=== PATIENT | male | born 1940 | race Caucasian/White ===

== ENCOUNTER 2019-04-05 07:48 | Day surgery (SDC) | payer OTHER, MEDICARE ==
[2019-04-04 16:23] VITALS: BMI 25.2
[2019-04-05] MEDS ORDERED: LIDOCAINE HCL 1%, 10 MG/ML (20ML VIAL) ONE (10:20)
[2019-04-05] MEDS ORDERED: HEPARIN NA (PORCINE) 5,000 UNITS/ML 1ML VIAL ONE ×2 (10:20→12:29)
[2019-04-05] MEDS ORDERED: ceFAZolin SODIUM 1 GM VIAL ONE ×2 (10:43→12:06)
[2019-04-05] MEDS ORDERED: SODIUM CHLORIDE 0.9% P/F 10 ML VIAL IJ ONE ×2 (10:43→12:06)
[2019-04-05] MEDS ORDERED: PROPOFOL 20 ML ONE ×2 (10:43→12:38)
[2019-04-05] MEDS ORDERED: MIDAZOLAM HCL 2 MG/2 ML SINGLE DOSE VIAL ONE ×4 (10:43→12:31)
[2019-04-05] MEDS ORDERED: ONDANSETRON 4 MG/2 ML VIAL IVPUSH PRN (11:41)
[2019-04-05] MEDS ORDERED: oxyCODONE HCL 5 MG TABLET PO PRN (11:41)
[2019-04-05] MEDS ORDERED: LACTATED RINGERS SOLUTION 1,000 ML IV SCH (11:45)
--- NOTE | 2019-04-05 11:47 | HP ---
Admitting History and Physical - Admission Chief Complaint: left lower ext claudication less than 2 blocks Limitations to Obtaining History: No Limitations - Smoking History Smoking history: Former smoker Have you smoked in the past 12 months: No Aproximately how many cigarettes per day: 3 If you are a former smoker, when did you quit?: 2012 - Alcohol/Substance Use Hx Alcohol Use: Yes (FEW BEERS A DAY) Home Medications - Allergies Allergies/Adverse Reactions: Allergies Allergy/AdvReac Type Severity Reaction Status Date / Time No Known Allergies Allergy Verified 04/05/19 09:40 - Home Medications Home Medications: Ambulatory Orders Clopidogrel Bisulfate [Plavix -] 75 mg PO DAILY #30 tablet 10/12/17 Beta-Carotene(A) W-C and E/Min [Ocuvite (Nf)] 1 tab PO DAILY 04/04/19 Review of Systems - Review of Systems Constitutional: reports: No Symptoms Eyes: reports: No Symptoms HENT: reports: No Symptoms Neck: reports: No Symptoms Cardiovascular: reports: No Symptoms Respiratory: reports: No Symptoms Gastrointestinal: reports: No Symptoms Musculoskeletal: reports: No Symptoms Integumentary: reports: No Symptoms Neurological: reports: No Symptoms Endocrine: reports: No Symptoms Hematology/Lymphatic: reports: No Symptoms Psychiatric: reports: No Symptoms Physical Examination Vital Signs: Vital Signs Temperature 97.4 F L 04/05/19 09:39 Pulse Rate 71 04/05/19 09:39 Respiratory Rate 20 04/05/19 09:39 Blood Pressure 152/83 04/05/19 09:39 O2 Sat by Pulse Oximetry (%) 97 04/05/19 09:23 Constitutional: Yes: Well Nourished, No Distress, Calm Eyes: Yes: WNL, Conjunctiva Clear, EOM Intact HENT: Yes: WNL, Atraumatic, Normocephalic Neck: Yes: WNL, Supple, Trachea Midline Cardiovascular: Yes: WNL, Regular Rate and Rhythm Respiratory: Yes: WNL, Regular, CTA Bilaterally Gastrointestinal: Yes: WNL, Normal Bowel Sounds Musculoskeletal: Yes: WNL Extremities: Yes: WNL Edema: No Peripheral Pulses WNL: No Integumentary: Yes: WNL Neurological: Yes: WNL, Alert, Oriented ...Motor Strength: WNL Psychiatric: Yes: WNL Problem List - Problems (1) Claudication of left lower extremity Assessment/Plan: for angiogram today Code(s): I73.9 - PERIPHERAL VASCULAR DISEASE, UNSPECIFIED
[2019-04-05] MEDS ORDERED: HEPARIN NA (PORCINE) 5,000 UNITS/ML 1ML VIAL IV ONE (12:35)
[2019-04-05] MEDS ORDERED: SEVOFLURANE 250 ML BTL ONE (12:48)
[2019-04-05] MEDS ORDERED: DESFLURANE GAS 240 ML BOTTLE IH ONE (12:48)
[2019-04-05] MEDS ORDERED: PROTAMINE SULFATE 50 MG/5 ML VIAL ONE (12:57)
[2019-04-05] MEDS ORDERED: CLOPIDOGREL BISULFATE 75 MG TABLET (FP) PO ONE ×2 (13:10→13:20)
--- NOTE | 2019-04-05 13:10 | OP ---
Operative Note - Note: Operative Date: 04/05/19 Pre-Operative Diagnosis: LLE claudication Operation: Aortogram, LLE angiogram, SFA atherectomy with angioplasty Findings: SFA 95% stenosis Post-Operative Diagnosis: Same as Pre-op Surgeon: Santos De Jesus Anesthesia: Fractional Estimated Blood Loss (mls): 50 Operative Report Dictated: Yes
[2019-04-05] MEDS ORDERED: CLOPIDOGREL BISULFATE 75 MG TABLET (FP) ONE (13:21)
[2019-04-05 17:21] VITALS: PULSE 70
[2019-04-05 18:41] VITALS: BP 162/70; TEMP 97.8
--- NOTE | 2019-04-26 00:42 | OP ---
DATE OF OPERATION: 04/05/2019 PREOPERATIVE DIAGNOSIS: Left lower extremity claudication. POSTOPERATIVE DIAGNOSIS: Left lower extremity claudication. PROCEDURE: Aortogram, left lower extremity angiogram, superficial femoral artery atherectomy with angioplasty and stent placement. FINDINGS: 95% stenosis in left SFA. SURGEON: Santos Garcia DO ANESTHESIA: Fractional. BLOOD LOSS: 50 mL. INDICATION: The patient is a 79-year-old male that has a left lower extremity claudication less than 2 blocks. Preoperative ultrasound showed 95% stenosis in the left SFA. Patient had medical and cardiology clearance performed as an outpatient. Patient then came in as an outpatient for the procedure. Patient was consented for the procedure, understanding all risks, benefits, and alternatives, and taken to the operating room. DESCRIPTION OF PROCEDURE: Once in the operating room, he was laid on the operating table in a supine manner, and the area of the left and right groin are prepped and draped in a sterile surgical manner. We then went ahead and injected 10 mL of lidocaine 1% over the right common femoral artery. We then took a Micropuncture needle and punctured the right common femoral artery. A Micropuncture wire was inserted, Micropuncture sheath was inserted, and a traditional 5-Syriac sheath was inserted. We then placed 0.035 floppy guidewire up into the aorta followed by an Omniflush catheter. We then shot an aortogram by hand injection showing that the aorta and the iliac arteries were without any disease. We then took our 0.035 floppy guidewire and placed it up and over to the left common femoral artery and our Omniflush catheter followed. We then shot an angiogram of the left lower extremity by hand injection showing that the common femoral artery and profunda were patent, proximal SFA was patent. The mid SFA had a 95% stenosis. Distal SFA was patent, popliteal artery was patent with a 2-vessel runoff into the foot. At this point, we placed 0.035 stiff guidewire into the SFA with Omniflush catheter. A 6 x 45-crossover sheath was placed. Then, 5000 units of IV heparin were administered to the patient. We then used our 0.035 floppy guidewire. We were able to get it, a 0.035 stiff guidewire along with a Quick-Cross catheter, we were able to cross our 95% stenosis. We exchanged the wire for a ViperWire. We then atherectomy device and performed atherectomy on low and medium to the lesion. We then went ahead and used a 5 x 4 Ultraverse balloon and performed angioplasty of the area. Completion angiogram now showed that the area was now more patent but was dissected. At this point we placed a 6 x 4 LifeStent and ballooned it in place using a 5 x 4 Ultraverse balloon. Completion angiogram now showed that the SFA was patent. There was no recoil of the stent. There was good brisk flow. Good runoff into the foot with a palpable pulse. At this point, we brought our sheath up and over. StarClose device was deployed in the right common femoral artery. Pressure was held for 5 minutes until there was no bleeding. Areas were then dried and Dermabond was placed. She tolerated the procedure with no complications. Patient was transferred to PACU in stable condition. SANTOS GARCIA DO NP/[id number]
== END 2019-04-05 16:30 | disposition home or self-care (01) ==
LOC: JASU-SURG 07:48
PROVIDERS: ATTEND Surgery Vascular Surgery
PROC: 047L3DZ Dilation of Left Femoral Artery with Intraluminal Device, Percutaneous Approach (ICD-10-PCS; principal; 2019-04-05 10:00)
DX: I70.212 Atherosclerosis of native arteries of extremities with intermittent claudication, left leg (principal)
CPT/HCPCS: 37227; C1877; 76000-TC-FY; 94760; J1644

== ENCOUNTER 2022-08-12 05:31 | Day surgery (SDC) | payer OTHER, MEDICARE ==
[2022-08-06 11:29] VITALS: BMI 25.8
[2022-08-12] MEDS ORDERED: HEPARIN NA (PORCINE) 5,000 UNITS/ML 1ML VIAL ONE ×2 (13:03→13:32)
[2022-08-12] MEDS ORDERED: MIDAZOLAM HCL 2 MG/2 ML SINGLE DOSE VIAL ONE ×2 (14:17→14:23)
[2022-08-12] MEDS ORDERED: ceFAZolin SODIUM 1 GM VIAL IVPB ONE (14:39)
[2022-08-12] MEDS ORDERED: LIDOCAINE HCL 1%, 10 MG/ML (20ML VIAL) INF ONE ×2 (14:44)
[2022-08-12] MEDS ORDERED: IBUPROFEN 800 MG/8 ML IJ IVPB PRN (15:26)
[2022-08-12 15:52] VITALS: RESP 16
[2022-08-12 16:35] VITALS: BP 164/63; PULSE 65; TEMP 97.5
== END 2022-08-12 17:05 | disposition home or self-care (01) ==
LOC: JASU-SURG 05:31
PROVIDERS: ATTEND Surgery Vascular Surgery
PROC: 047T3ZZ Dilation of Right Peroneal Artery, Percutaneous Approach (ICD-10-PCS; 2022-08-12)
PROC: 047K3ZZ Dilation of Right Femoral Artery, Percutaneous Approach (ICD-10-PCS; principal; 2022-08-12 15:00)
DX: I70.211 Atherosclerosis of native arteries of extremities with intermittent claudication, right leg (principal)
CPT/HCPCS: 37225; 37228; C1725; 76000-TC-FY; 94760; C1760; C1769; J1644